=== PATIENT | female | born 1995 | race Caucasian/White ===

== ENCOUNTER 2017-02-01 10:44 | Emergency (ER) | payer BC, OTHER ==
[2017-02-01 11:46] LABS: Hematocrit 41 % (35-47); Hemoglobin 13.7 g/dl (12.0-16.0); Mean Corpuscular HGB Conc 34 g/dl (31-36); Mean Corpuscular Hemoglobin 30 pg (27-31); Mean Corpuscular Volume 89 fL (80-97); Mean Platelet Volume 7 um3 (7.4-10.4); Red Cell Distribution Width 14 % (10.5-15); White Blood Count 7.4 10^3/ul (3.5-10.8)
[2017-02-01 12:03] LABS: Anion Gap 8 mmol/L (2-11); BUN/Creatinine Ratio 12.7 (8-20); Blood Urea Nitrogen 10 mg/dL (6-24); CO2 Carbon Dioxide 24 mmol/L (22-32); Chloride 103 mmol/L (101-111); EGFR African American 119.3 (>60); EGFR Non-African American 92.8 (>60); Glucose 123 mg/dL (70-100); Potassium 3.7 mmol/L (3.5-5.0); Sodium 135 mmol/L (133-145)
[2017-02-01 12:59] VITALS: BP 115/64
--- NOTE | 2017-02-18 15:23 | ED ---
Estelle Berger Edward, scribed for Tucker Zavala MD on 02/01/17 at 1114 . Syncope/Near Syncope - HPI Summary HPI Summary: 21 y/o female BLAN[place] s/p sudden onset syncopal episode this morning. No PMHx seizures or history of syncope. Pt states she hasnt eaten since yesterday and usually feels lightheaded when she doesn't eat.. Pt feels fine now and is asymptomatic in the ED. Denies dizziness, lightheadedness. Periods are on time. Patient is on control. EtOH use, non smoker. NKDA. She received Tetanus and Meningitis shots in the ED. Patient is drinking oral fluids in the ED. - History Of Current Complaint Hx Obtained From: Patient, EMS Context: Loss Of Consciousness Associated Signs And Symptoms: Other - Syncope, no other symptoms Frequency: Episodes x___ - 1 - Allergies/Home Medications Allergies/Adverse Reactions: Allergies Allergy/AdvReac Type Severity Reaction Status Date / Time No Known Allergies Allergy Unverified 04/13/13 09:52 PMH/Surg Hx/FS Hx/Imm Hx Previously Healthy: Yes Neurological History: Denies: Hx Seizures Infectious Disease History: Denies: Traveled Outside the [place] in Last 30 Days - Family History Known Family History: Positive: Other - Grandfather - TIA. Grandmother SHx - Bypass - Social History Alcohol Use: Occasionally Hx Substance Use: No Substance Use Type: Reports: None Hx Tobacco Use: No Smoking Status (MU): Never Smoked Tobacco Review of Systems Negative: Fever, Chills Negative: Erythema Negative: Sore Throat Negative: Chest Pain Negative: Shortness Of Breath, Cough Negative: Abdominal Pain, Vomiting, Nausea Negative: dysuria, hematuria Negative: Myalgia, Edema Negative: Rash Neurological: Other - No dizziness, lightheadedness Positive: Syncope All Other Systems Reviewed And Are Negative: Yes Physical Exam - Summary Physical Exam Summary: Constitutional: Well-developed, Well-nourished, Alert. (-) Distressed Skin: Warm, Dry HENT: Eyes: Conjunctiva normal Neck: Musculoskeletal ROM normal neck. (-) JVD, (-) Stridor, (-) Tracheal deviation Cardio: Rhythm regular, rate normal, Heart sounds normal; Intact distal pulses; The pedal pulses are 2+ and symmetric. Radial pulses are 2+ and symmetric. (-) Murmur Pulmonary/Chest wall: Effort normal. (-) Respiratory distress, (-) Wheezes, (-) Rales Abd: Soft. (-) Tenderness, ~(-) Distension, (-) Guarding, (-) Rebound Musculoskeletal: (-) Edema Lymph: (-) Cervical adenopathy Neuro: Alert, Oriented x3, Strength normal, Cranial nerves II-XII are grossly intact. (-) Dysmetria, (-) Nystagmus, (-) Ataxia by finger to nose testing, (-) Sensory deficit. No tongue biting. Psych: Mood and affect Normal Triage Information Reviewed: Yes Vital Signs On Initial Exam: Initial Vitals Temp Pulse Resp BP Pulse Ox 37.1 C 66 17 107/71 100 02/01/17 12:10 02/01/17 12:10 02/01/17 12:10 02/01/17 12:10 02/01/17 12:10 Vital Signs Reviewed: Yes Diagnostics - Vital Signs Vital Signs Temp Pulse Resp BP Pulse Ox 02/01/17 12:30 111 21 115/64 91 02/01/17 12:15 37.1 C 63 17 107/71 100 02/01/17 12:11 69 98 02/01/17 12:10 37.1 C 66 17 107/71 100 - Laboratory Lab Results: Lab Results 02/01/17 02/01/17 Range/Units 11:40 11:40 WBC 7.4 (3.5-10.8) 10^3/ul RBC 4.60 (4.0-5.4) 10^6/ul Hgb 13.7 (12.0-16.0) g/dl Hct 41 (35-47) % MCV 89 (80-97) fL MCH 30 (27-31) pg MCHC 34 (31-36) g/dl RDW 14 (10.5-15) % Plt Count 301 (150-450) 10^3/ul MPV 7 L (7.4-10.4) um3 Sodium 135 (133-145) mmol/L Potassium 3.7 (3.5-5.0) mmol/L Chloride 103 (101-111) mmol/L Carbon Dioxide 24 (22-32) mmol/L Anion Gap 8 (2-11) mmol/L BUN 10 (6-24) mg/dL Creatinine 0.79 (0.51-0.95) mg/dL Est GFR ( Amer) 119.3 (>60) Est GFR (Non-Af Amer) 92.8 (>60) BUN/Creatinine Ratio 12.7 (8-20) Glucose 123 H (70-100) mg/dL Calcium 9.0 (8.6-10.3) mg/dL Beta HCG, Quant < 0.60 mIU/mL Result Diagrams: 02/01/17 11:40 02/01/17 11:40 Lab Statement: Any lab studies that have been ordered have been reviewed, and results considered in the medical decision making process. Re-Evaluation - Re-Evaluation 1 Re-Evaluation Time: 12:39 Comment: Discussed plan to d/c with pt. Pt is agreeable with plan Course/Dx Assessment/Plan: 21 y/o female BIBA s/p syncopal episode this morning. No PMHx seizures or history of syncope. Pt states she hasnt eaten since yesterday. Pt feels fine now and is asymptomatic in the ED. Denies dizziness, lightheadedness. Periods are on time. Patient is on control. She received Tetanus and Meningitis shots in the ED. EtOH use, non smoker. Pt is drinking oral fluids in the ED and ate 2 sandwiches. Pt will discharged home with f/u with PCP. Pt and her father are agreeable with this plan. - Diagnoses Provider Diagnoses: Syncopal seizure, Vasovagal syncope Discharge - Discharge Plan Condition: Stable Disposition: HOME Patient Education Materials: Syncope (ED) Referrals: [facility] [place] PHYSICIAN REFERRAL [Outside] - 3 Days (Please f/u in 2-3 days) The documentation as recorded by the Estelle martino Edward accurately reflects the service I personally performed and the decisions made by , Tucker Zavala MD.
== END 2017-02-01 12:58 | disposition home or self-care (01) ==
LOC: ED 10:44
DX: R55 Syncope and collapse (principal)
CPT/HCPCS: 36415; 80048; 84702; 85027; 99283